=== PATIENT | female | born 1995 | race Caucasian/White ===

== ENCOUNTER → 2021-11-17 | Outpatient (CLI) | payer OTHER ==
[2021-11-17 12:25] LABS: HEMOGLOBIN 12.3 gm/dl (12.3-15.3); RED BLOOD COUNT 4.29 M/UL (4.00-5.10)
[2021-11-18 08:14] LABS: HIV AB/P24 AG SCREEN Non Reactive (Non Reactive)
[2021-11-18 09:14] LABS: SARS COV-2 SPIKE AB INTERP Positive (.)
[2021-11-18 11:14] LABS: ANTISTREPTOLYSIN O AB 95.4 IU/mL (0.0-200.0)
[2021-11-18 14:11] LABS: EBV AB VCA, IGG <18.0 U/mL (0.0-17.9); EBV AB VCA, IGM 37.2 U/mL (0.0-35.9)
== END ==
LOC: RAD 11:44
PROVIDERS: Nurse Practitioner
DX: I47.1 Supraventricular tachycardia (principal); D72.829 Elevated white blood cell count, unspecified
CPT/HCPCS: 36415; 71046; 84100; 85025; 85652; 86060; 86140; 86769; 87389